=== PATIENT | female | born 1940 ===

== ENCOUNTER 2023-04-13 06:17 | Inpatient (IN) | payer OTHER, MEDICAID ==
[~2023-04-13] VITALS: Ht 144.8 cm; Wt 99.2 kg
[2023-04-13 08:30] VITALS: PULSE 99
[2023-04-13] MEDS ORDERED: ONDANSETRON HCL 4 MG/2 ML VIAL IV PRN (13:00)
[2023-04-13] MEDS ORDERED: POTASSIUM CHLORIDE 40 MEQ, LIDOCAINE 1% (LOCAL ANESTH.) 4 ML in SODIUM CHL 0.9% 250 ML IV ONE (13:00)
[2023-04-13] MEDS ORDERED: ACETAMINOPHEN 325 MG TAB PO PRN (13:00)
[2023-04-13] MEDS ORDERED: hydrALAZINE HCL 10 MG TAB PO PRN (13:00)
[2023-04-13 13:30] VITALS: PULSE 94; RESP 16; O2SAT 93
[2023-04-13 13:31] VITALS: BP 129/62; PULSE 89; RESP 16; TEMP 98.2; O2SAT 97
[2023-04-13] MEDS ORDERED: levoFLOXacin 500MG 100 ML IV ONE (14:45)
[2023-04-13 14:57] LABS: Cholesterol 226 mg/dL (< 200)
[2023-04-13 15:01] LABS: HDL Cholesterol 55 mg/dL (40-59); LDL Cholesterol 146 mg/dL (< 100); Triglycerides 127 mg/dL (< 150)
[2023-04-13 15:14] LABS: Albumin 3.1 g/dL (3.4-5.0); Calcium 9.1 mg/dL (8.5-10.1); Potassium 3.3 mmol/L (3.5-5.1)
[2023-04-13 15:17] LABS: Bilirubin, Total 0.8 mg/dL (0.2-1.0); Total Protein 7.4 g/dL (6.4-8.2)
[2023-04-13] MEDS ORDERED: APIX2.5T PO (15:55)
[2023-04-13] MEDS ORDERED: OMEP1CAP70 PO (15:55)
[2023-04-13] MEDS ORDERED: HYDR25TA5 PO (15:55)
[2023-04-13] MEDS ORDERED: CHOL1TAB30 PO (15:55)
[2023-04-13] MEDS ORDERED: NYST1OIN25 TOP (15:55)
[2023-04-13] MEDS ORDERED: POTA-180 PO (15:55)
[2023-04-13] MEDS ORDERED: SODIUM CHLORIDE 0.9% 200 ML IV ONE (16:30)
[2023-04-13 16:31] VITALS: BP 127/64; PULSE 72; RESP 18; TEMP 98; O2SAT 93
[2023-04-13 20:00] VITALS: PULSE 99
[2023-04-13] MEDS: ACETAMINOPHEN 325 MG TAB PO PRN (20:41)
[2023-04-13] MEDS: ATORVASTATIN 20 MG TAB PO SCH (21:06)
[2023-04-13] MEDS: APIXABAN 2.5 MG TAB PO SCH (21:06)
[2023-04-13] MEDS: DOCUSATE SOD 100 MG CAP PO SCH (21:07)
[2023-04-13] MEDS: HCTZ 25 MG TAB PO SCH (21:09)
[2023-04-13 22:00] VITALS: BP 129/42; PULSE 94; RESP 22; TEMP 97.5; O2SAT 92
[2023-04-14] VITALS (11 sets, daily range): BP systolic 100–149; BP diastolic 49–74; PULSE 59–92; RESP 17–21; TEMP 97.6–98.1; O2SAT 92–94
[2023-04-14 07:03] LABS: Basophils # (auto) 0 10 ^3/uL (0-0.2); Basophils % (auto) 0.6 % (0.0-2.0); Eosinophils # (auto) 0.1 10 ^3/uL (0-0.8); Hematocrit 45.8 % (36.0-46.0); Hemoglobin 15.1 g/dL (12.2-16.2); Lymphocytes # (auto) 2.1 10 ^3/uL (0.4-5.4); Mean Corpuscular Hemoglobin 31.2 pg (28.0-32.0); Mean Corpuscular Volume 94.6 fL (80.0-100.0); Monocytes # (auto) 0.5 10 ^3/uL (0-1.3); Monocytes % (auto) 7.3 % (0.0-12.0); Neutrophils # (auto) 4.3 10 ^3/uL (1.6-8.6); Neutrophils % (auto) 61.1 % (37.0-80.0); Nucleated Red Blood Cells % 0.1 %; Red Blood Cells 4.84 10^6/uL (4.0-5.20); Red Cell Distribution Width 15.2 % (11.8-14.3); White Blood Cell 7.1 10^3/uL (4.4-10.8)
[2023-04-14] MEDS ORDERED: cefTRIAXone 1GM/50ML D5W 50 ML IV SCH (09:00)
[2023-04-14 09:19] LABS: Albumin 2.8 g/dL (3.4-5.0); Calcium 8.5 mg/dL (8.5-10.1); Potassium 3.6 mmol/L (3.5-5.1)
[2023-04-14 09:24] LABS: BUN/Creatinine Ratio 21.1 (10.0-20.0); Bilirubin, Total 0.9 mg/dL (0.2-1.0); Total Protein 6.9 g/dL (6.4-8.2)
[2023-04-14] MEDS: CHOLECALCIFEROL (VITD3) 1,000UNIT=25mCg TAB PO SCH (09:41)
[2023-04-14] MEDS: APIXABAN 2.5 MG TAB PO SCH ×2 (09:41→21:14)
[2023-04-14] MEDS: DOCUSATE SOD 100 MG CAP PO SCH ×2 (09:41→21:14)
[2023-04-14] MEDS: HCTZ 25 MG TAB PO SCH ×2 (09:43→21:15)
[2023-04-14] MEDS: levoFLOXacin 500MG 100 ML IV SCH (09:43)
[2023-04-14] MEDS ORDERED: PANTOPRAZOLE 40 MG TAB PO SCH (10:00)
[2023-04-14] MEDS ORDERED: ASPirin-EC 81 mg tab PO SCH (10:00)
[2023-04-14 15:29] LABS: Urine Bacteria FEW /hpf (None Seen); Urine Blood Negative /uL (Negative); Urine Specific Gravity 1.012 (1.001-1.035); Urine WBC 40 /hpf (0 - 5)
[2023-04-14] MEDS: ACETAMINOPHEN 325 MG TAB PO PRN ×2 (15:41→21:21)
[2023-04-14 15:45] LABS: Alcohol, Urine < 3.0 mg/dL (0-10); Amphetamine Screen, Urine NEGATIVE (NEGATIVE); Barbiturate Scree,Urine NEGATIVE (NEGATIVE); Benzodiazephine Screen, Urine NEGATIVE (NEGATIVE); Cannabinoid Screen, Urine NEGATIVE (NEGATIVE); Cocaine Screen, Urine NEGATIVE (NEGATIVE); Opiate Scree,Urine NEGATIVE (NEGATIVE); Phencyclidine Screen, Urine NEGATIVE (NEGATIVE)
[2023-04-14] MEDS ORDERED: SIME1CAP7 (16:28)
[2023-04-14] MEDS ORDERED: ASCO500T11 PO (16:28)
[2023-04-14] MEDS ORDERED: LORA-483 PO (16:28)
[2023-04-14] MEDS ORDERED: BENZ200C64 PO (16:28)
[2023-04-14] MEDS ORDERED: [UNRECOGNIZED DRUG - CODE] PO (16:28)
[2023-04-14] MEDS ORDERED: NITR1CAP23 (16:28)
[2023-04-14] MEDS ORDERED: ACET-1881 PO (16:28)
[2023-04-14] MEDS ORDERED: GUAI100S6 (16:28)
[2023-04-14] MEDS ORDERED: CRAN125T PO (16:28)
[2023-04-14] MEDS ORDERED: TRAM50TA2 PO (16:28)
[2023-04-14] MEDS ORDERED: MAGN400T40 (16:28)
[2023-04-14] MEDS: ATORVASTATIN 20 MG TAB PO SCH (21:14)
[2023-04-14] MEDS: POTASSIUM CHL 20 Meq TABLET PO SCH (21:15)
[2023-04-15 05:00] VITALS: BP 116/53; PULSE 76; RESP 18; TEMP 97.9; O2SAT 92
[2023-04-15] MEDS: ACETAMINOPHEN 325 MG TAB PO PRN (05:35)
[2023-04-15 08:30] VITALS: PULSE 75; PULSE 82; RESP 16; O2SAT 94
[2023-04-15 09:00] VITALS: BP 110/54; PULSE 82; RESP 16; TEMP 97.8; O2SAT 94
[2023-04-15] MEDS: APIXABAN 2.5 MG TAB PO SCH (10:21)
[2023-04-15] MEDS: levoFLOXacin 500MG 100 ML IV SCH (10:21)
[2023-04-15] MEDS: DOCUSATE SOD 100 MG CAP PO SCH (10:21)
[2023-04-15] MEDS: POTASSIUM CHL 20 Meq TABLET PO SCH (10:22)
[2023-04-15] MEDS: ATORVASTATIN 20 MG TAB PO SCH (10:22)
[2023-04-15] MEDS: CHOLECALCIFEROL (VITD3) 1,000UNIT=25mCg TAB PO SCH (10:22)
[2023-04-15 10:30] VITALS: BP 110/54; PULSE 82; RESP 16; TEMP 97.8; O2SAT 94
[2023-04-15] MEDS: HCTZ 25 MG TAB PO SCH (10:30)
[2023-04-15] MEDS ORDERED: HYDR25TA5 PO (12:01)
[2023-04-15] MEDS ORDERED: CIPR500T4 PO (12:01)
[2023-04-15] MEDS ORDERED: POTA-180 PO (12:01)
[2023-04-15 13:00] VITALS: BP 109/43; PULSE 82; RESP 18; TEMP 97.4; O2SAT 93
== END 2023-04-15 16:11 | disposition home health service (06) | DRG 690 ==
LOC: TELE-WESTW 13:05
PROVIDERS: ADMIT Hospitalist; ATTEND Hospitalist
DX: N39.0 Urinary tract infection, site not specified (principal); Z68.42 Body mass index [BMI] 45.0-49.9, adult; E87.6 Hypokalemia; D72.829 Elevated white blood cell count, unspecified; E73.9 Lactose intolerance, unspecified; I48.0 Paroxysmal atrial fibrillation; E66.9 Obesity, unspecified; I44.1 Atrioventricular block, second degree; Z79.01 Long term (current) use of anticoagulants; Z86.718 Personal history of other venous thrombosis and embolism; Z88.0 Allergy status to penicillin
CPT/HCPCS: 36415; 80053; 80061; 80307; 81001; 83036; 83735; 83880; 84443; 84484; 85025; 87040; 87086; 87088; 87186; 93005; 93306; 93886; 97163; G0378; J1956; J2001